=== PATIENT | male | born 1965 | race Hispanic/Latino ===

== ENCOUNTER 2022-06-15 06:55 | Day surgery (SDC) | payer BC ==
[2022-06-14 09:17] VITALS: BP 169/94
[2022-06-15] VITALS (17 sets, daily range): BP systolic 110–148; BP diastolic 75–92
[~2022-06-15] VITALS: Ht 172.7 cm; Wt 102.4 kg
[~2022-06-15 06:55] MED LIST: ATOR20TA65 PO; CEFAZOLIN SODIUM 1 GM VIAL IVP SCH; MECL-226 PO; VITA1CAP85 PO; VITAMIN C PO
[2022-06-15] MEDS ORDERED: LACTATED RINGERS 1000ML 1,000 ML IV ONE (08:01)
[2022-06-15] MEDS ORDERED: MIDAZOLAM HCL 1 MG/ML 2ML VIAL ONE (10:23)
[2022-06-15] MEDS ORDERED: PROPOFOL 10 MG/ML 20ML VIAL IV ONE (10:23)
[2022-06-15] MEDS ORDERED: NEOMY SULF/BACITRAC ZN/POLY OINT 30GM TUBE TP ONE (10:24)
[2022-06-15] MEDS ORDERED: LIDOCAINE HCL 1% 10 ML VIAL ONE (10:24)
[2022-06-15] MEDS ORDERED: FENTANYL CITRATE PF 50 MCG/1 ML 2ML VIAL ONE (10:24)
[2022-06-15] MEDS ORDERED: FAMOTIDINE 20MG VIAL IV ONE ×2 (10:26→10:32)
[2022-06-15] MEDS ORDERED: CEFAZOLIN SODIUM 2 GM VIAL IV ONE (10:40)
[2022-06-15] MEDS ORDERED: ONDANSETRON 4MG INJ ONE (10:48)
[2022-06-15] MEDS ORDERED: BUPIVACAINE/PF 0.25% 30ML VIAL IJ ONE (10:49)
[2022-06-15] MEDS ORDERED: BUPIVACAINE/PF 0.5% 30ML VIAL ONE (10:49)
[2022-06-15] MEDS ORDERED: MEPERIDINE-PF 25 MG/ML SYG ONE (11:36)
== END 2022-06-15 13:45 | disposition home or self-care (01) ==
LOC: DAH 06:55
PROVIDERS: ATTEND Urology
DX: N47.1 Phimosis (principal); N47.5 Adhesions of prepuce and glans penis; I10 Essential (primary) hypertension; E78.5 Hyperlipidemia, unspecified; K21.9 Gastro-esophageal reflux disease without esophagitis; E66.9 Obesity, unspecified; Z98.890 Other specified postprocedural states
CPT/HCPCS: 87426; 54161; 54164; A4663; A4351; J0690 ×2; J7120; J3490 ×4; J3010; J2250; J2704; J2405; J2175; A4930; A4215; A4223; A4222; A4221; A4600; A4510